=== PATIENT | male | born 1995 | race Caucasian/White ===

== ENCOUNTER 2017-10-03 21:19 | Emergency (ER) | payer OTHER ==
[~2017-10-03] VITALS: Ht 165.1 cm; Wt 68.1 kg
[2017-10-03 21:23] VITALS: TEMP 36.9; Ht 165.1 cm; Wt 68.1 kg
[2017-10-03] MEDS ORDERED: CNC/36 PO (22:04)
--- NOTE | 2017-10-03 22:24 | DIAGNOSTIC IMAGING REPORT ---
R CLAVICLE CLINICAL HISTORY: RIGHT, EVAL FX trauma. Pain. COMPARISON: None. DISCUSSION: Grade 1 separation right acromioclavicular joint. No well-defined fracture. Glenohumeral joint is unremarkable. There is no evidence for soft tissue swelling. IMPRESSION: Grade 1 separation right acromioclavicular joint. The above report was generated using voice recognition software. It may contain grammatical, syntax or spelling errors. Electronically signed by: Devin Levy M.D. 10/03/2017 10:23 PM Dictated Date/Time: 10/03/2017 10:22 PM
[2017-10-03] MEDS ORDERED: HYDR-5688 PO (22:39)
--- NOTE | 2017-10-03 22:41 | EMERGENCY ROOM VISIT NOTE ---
ED Visit Note First contact with patient: 21:32 CHIEF COMPLAINT: Right shoulder/upper arm injury 2 hours ago HISTORY OF PRESENT ILLNESS: Patient is a [id number]-ftcovibl 22-year-old male who presents emergency department for evaluation of right shoulder/clavicle pain after he fell while skiing about 2 hours ago. He was skiing and [place] , went over a small jump and lost control, landing on his right upper arm when he fell. He immediately felt a sensation of pain and describes it almost popping sound in the right upper arm. He was most comfortable when he was laying flat on the ground. He was evaluated by life skills consultant and placed in a sling -like immobilizer. He complains of pain in the top of his right shoulder, that radiates slightly towards his neck and down into his pack that he rates a 7/10. He has not had any medication for pain. He denies any shortness of breath, or difficulty breathing. He denies any numbness, tingling or weakness radiating down the right upper extremity. REVIEW OF SYSTEMS: Review of systems as per HPI. All other systems reviewed were negative. At least 6 systems reviewed. PMH: Electronic medical records are reviewed and summarized as above/below. See Problem List.\ SOCIAL HISTORY: Patient is a recent [employer] graduate originally from [facility]. He is scheduled to start work in [place]. Smoker. PHYSICAL EXAM: Vital Signs: Reviewed Nurse's notes. CONSTITUTIONAL: Patient is well-appearing 22-year-old male who is awake and alert and in no acute distress. SKIN: Normal. MUSCULOSKELETAL: Examination of the right shoulder no no obvious deformity. He is tender over the clavicle and the acromioclavicular joint. No fracture crepitus appreciated. Skin is intact without tenting. He does not have any pain over the glenohumeral joint. Range of motion of the shoulder causes pain in the carpal region. The right upper extremity is neurovascularly intact. EMERGENCY DEPARTMENT COURSE: The patient was offered medication for discomfort but declined. Right clavicle x-rays are obtained and findings are consistent with a grade 1 AC separation. Patient was fitted with an arm sling for comfort. The supportive care measures were discussed. He was encouraged to follow-up with orthopedics for further care and evaluation of his injury. Differential diagnosis entertained included shoulder dislocation/subluxation, fracture, AC separation, among others. Medication reconciliation: I attest that I have personally reviewed the patient' s current medication list. Blood pressure screening : Patient was found to have normal blood pressure on screening and does not require follow-up. Patient was reviewed in the [facility] Prescription Drug Monitoring Program, and there were no records noted. R CLAVICLE CLINICAL HISTORY: RIGHT, EVAL FX trauma. Pain. COMPARISON: None. DISCUSSION: Grade 1 separation right acromioclavicular joint. No well-defined fracture. Glenohumeral joint is unremarkable. There is no evidence for soft tissue swelling. IMPRESSION: Grade 1 separation right acromioclavicular joint. Current/Historical Medications Scheduled Methylphenidate Hcl (Concerta), 36 MG PO DAILY Scheduled PRN Hydrocodone/Acetaminophen 5MG/325MG ([place] 5MG/325MG), 1-2 TABLETS PO Q4 PRN for Pain Allergies Coded Allergies: No Known Allergies (Unverified , 10/03/17) Vital Signs Date Time Temp Pulse Resp B/P (MAP) Pulse Ox O2 Delivery O2 Flow Rate FiO2 10/03/17 21:23 36.9 88 18 119/76 97 Room Air Departure Information Impression Primary Impression: Acromioclavicular joint separation Prescriptions Hydrocodone/Acetaminophen 5MG/325MG ([place] 5MG/325MG) Tab 1-2 TABLETS PO Q4 Y for Pain, #25 TAB For Initial Treatment Prov: Sari Gastelum PA 10/03/17 Referrals No Doctor, Assigned (PCP) Morris Rincon MD [facility] Patient Instructions My [facility] Additional Instructions Hydrocodone/Acetaminophen ([place]) 5/325 mg: Take 1-2 pills every four hours for breakthrough pain. Avoid alcohol, operating machinery or dangerous equipment, working on ladders or roofs, DRIVING, or situations where being under the influence may be dangerous. It is recommended to use an eknj-cnd-rqvwubc stool softener such as Colace, 100mg twice daily while taking this medication to avoid constipation. Ibuprofen(Motrin, Advil) may be used for fever or pain. Use 600mg every six hours as needed. Take with food. Avoid using more than 2400mg in a 24 hour period. Do not use 2400mg per day for more than three consecutive days without physician direction. Prolonged inappropriate use can lead to stomach upset or ulcers. This medication can be taken if you need to drive, work, or perform activities which may be dangerous when taking narcotic pain medication. (AND/OR) Acetaminophen(Tylenol) may be used for fever or pain. Use 1000mg every six hours as needed. Avoid using more than 3000mg in a 24 hour period. This medication can be taken if you need to drive, work, or perform activities which may be dangerous when taking narcotic pain medication. Ice compresses for 20 minutes at a time four times daily for 2-3 days. Use the sling as instructed. Remove your arm from the sling 4-6 times a day and move all the joints around to keep them loose. Rest and elevate your injury. Continue current medications. Return to the ER immediately for any numbness, tingling, severe pain, extreme swelling in the extremity or as needed. Call [facility] on Thursday to arrange follow up for your injury.
[2017-10-03] MEDS ORDERED: NORCO 5/325MG HOME PACK PO ONE (22:45)
[2017-10-03 22:52] VITALS: BP 130/71; PULSE 83; O2SAT 97
== END 2017-10-03 22:53 | disposition home or self-care (01) ==
LOC: C.EDB 21:22 → C.EDD 22:53
DX: S43.101A Unspecified dislocation of right acromioclavicular joint, initial encounter (principal); Y93.23 Activity, snow (alpine) (downhill) skiing, snowboarding, sledding, tobogganing and snow tubing; Y92.838 Other recreation area as the place of occurrence of the external cause